=== PATIENT | male | born 1985 ===

== ENCOUNTER 2016-08-22 05:23 | Observation (INO) | payer OTHER ==
[2016-08-22 05:46] VITALS: TEMP 97.9; O2SAT 98
--- NOTE | 2016-08-22 06:18 | ED PDOC ---
HPI: Chest Pain Time Seen by Provider: 08/22/16 05:32 Chief Complaint (Nursing): Chest Pain Chief Complaint (Provider): chest pain History Per: Patient History/Exam Limitations: no limitations Onset/Duration Of Symptoms: Hrs Current Symptoms Are (Timing): Still Present Additional Complaint(s): 31yo male with PMHx including drug abuse presents to the ED with c/o intermittent chest pain since 1500 yesterday. Patient states chest pain is non- radiating and non-exertional associated with mild SOB. Admits to cocaine use over the weekend (3 lines) and alcohol use. Denies any other drugs. Past Medical History Reviewed: Historical Data, Nursing Documentation, Vital Signs Vital Signs: Last Vital Signs Temp 97.9 F 08/22/16 05:43 Pulse 85 08/22/16 05:43 Resp 16 08/22/16 05:43 BP 142/81 08/22/16 05:43 Pulse Ox 98 08/22/16 06:23 - Medical History Other PMH: drug abuse - Surgical History Surgical History: No Surg Hx - Family History Family History: States: No Known Family Hx - Social History Alcohol: Occasional Drugs: Cocaine - Home Medications Home Medications: Ambulatory Orders Medication Instructions Recorded No Known Home Med 04/26/15 - Allergies Allergies/Adverse Reactions: Allergies Allergy/AdvReac Type Severity Reaction Status Date / Time No Known Allergies Allergy Verified 08/22/16 06:34 Review of Systems ROS Statement: Except As Marked, All Systems Reviewed And Found Negative Cardiovascular: Positive for: Chest Pain Respiratory: Positive for: Shortness of Breath Physical Exam - Reviewed Nursing Documentation Reviewed: Yes Vital Signs Reviewed: Yes - Physical Exam Appears: Positive for: Well, No Acute Distress Head Exam: Positive for: ATRAUMATIC, NORMAL INSPECTION, NORMOCEPHALIC Skin: Positive for: Normal Color, Warm, Dry Eye Exam: Positive for: Normal appearance, EOMI, PERRL ENT: Positive for: Normal ENT Inspection Neck: Positive for: Normal, Painless ROM, Supple Cardiovascular/Chest: Positive for: Regular Rate, Rhythm. Negative for: Murmur , Tachycardia Respiratory: Positive for: Normal Breath Sounds. Negative for: Wheezing, Respiratory Distress Gastrointestinal/Abdominal: Positive for: Normal Exam, Bowel Sounds, Soft. Negative for: Tenderness Back: Positive for: Normal Inspection. Negative for: L CVA Tenderness, R CVA Tenderness Extremity: Positive for: Normal ROM. Negative for: Deformity, Swelling Neurologic/Psych: Positive for: Alert, Oriented - Laboratory Results Result Diagrams: 08/22/16 06:25 - ECG ECG: Positive for: Interpreted By Me, Viewed By Me ECG Rhythm: Positive for: Sinus Rhythm (NSR at 70 bpm, no ST or T wave changes ) O2 Sat by Pulse Oximetry: 98 Pulse Ox Interpretation: Normal (RA) Medical Decision Making Medical Decision Makin: Impression: cocaine induced chest pain Plan: Labs CXR Ativan 1mg PO ED obs reassess Patient s/o to Dr. Serrano at 0700 pending labs and re-eval. Scribe Attestation: Documented by Charmaine Rizvi acting as a scribe for Agapito Garcia MD. Provider Scribe Attestation: All medical record entries made by the Scribe were at my direction and personally dictated by me. I have reviewed the chart and agree that the record accurately reflects my personal performance of the history, physical exam, medical decision making, and the department course for this patient. I have also personally directed, reviewed, and agree with the discharge instructions and disposition. ED OBSERVATION Date of observation admission: 08/22/16 Time of observation admission: 05:56 - Observation admission statement Patient is being placed in observation because:: cocaine abuse, chest pain - Goals of Observation Goals of observation are:: pending ED workup Disposition - Clinical Impression Clinical Impression: Chest pain, Substance abuse - Patient ED Disposition Is Patient to be Admitted: Transfer of Care - Disposition Disposition: Transfer of Care Disposition Time: 07:00 Condition: STABLE Patient Signed Over To: Suzanne Serrano Handoff Comments: pending labs and re-eval
[2016-08-22 06:28] LABS: BASO % 0.5 % (0.0-2.0); EOS # 0.1 K/uL (0.0-0.7); EOS % 0.8 % (0.0-4.0); HEMATOCRIT 44.2 % (35.0-51.0); LYMPH # 2.4 K/uL (1.0-4.3); LYMPH % 32.3 % (20.0-40.0); MEAN CELL VOLUME 85.6 fl (80.0-94.0); MEAN CORPUSCULAR HEMOGLOBIN 28.8 pg (27.0-31.0); MEAN CORPUSCULAR HGB CONC 33.7 g/dL (33.0-37.0); MEAN PLATELET VOLUME 8.1 fl (7.2-11.7); MONO # 0.7 K/uL (0.0-0.8); MONO % 9.8 % (0.0-10.0); NEUT # 4.3 K/uL (1.8-7.0); NEUT % 56.6 % (50.0-75.0); NRBC % 0.1 % (0.0-0.0); RED CELL DISTRIBUTION WIDTH 13.4 % (11.5-14.5); WHITE BLOOD COUNT 7.6 K/uL (4.8-10.8)
[2016-08-22 06:43] LABS: BLOOD UREA NITROGEN 12 mg/dl (9-20); CALCIUM 9.5 mg/dL (8.4-10.2); CARBON DIOXIDE 26 mmol/L (22-30); CHLORIDE 103 mmol/L (98-107); GFR AFRICAN-AMERICAN > 60; GLUCOSE,RANDOM 103 mg/dL (75-110); POTASSIUM 4.2 MMOL/L (3.6-5.0); SODIUM 142 mmol/l (132-148)
[2016-08-22 06:49] LABS: PARTIAL THROMBOPLASTIN TIME 27.4 SECONDS (23.3-32.5)
--- NOTE | 2016-08-22 07:04 | ED PDOC ---
- Laboratory Results Result Diagrams: 08/22/16 06:25 08/22/16 06:25 - ECG O2 Sat by Pulse Oximetry: 98 - Progress Re-evaluation Time: 13:07 Condition: Re-examined, Improved Medical Decision Making Medical Decision Makin:00 Patient signed out to me by Dr. Garcia. Pending labs and re-eval. Disposition Doctor Will See Patient In The: Office Counseled Patient/Family Regarding: Studies Performed, Diagnosis, Need For Followup - Clinical Impression Clinical Impression: Chest pain, Substance abuse, Cocaine abuse - POA Present On Arrival: None - Disposition Disposition: Routine/Home Disposition Time: 13:08 Condition: GOOD
--- NOTE | 2016-08-22 09:48 | RAD ---
HISTORY: CP, cocaine abuse COMPARISON: 04/26/2015 TECHNIQUE: Chest PA and lateral FINDINGS: LUNGS: Poor inspiration with low lung volumes, mild crowded bronchovascular markings and mild bibasilar atelectasis PLEURA: No significant pleural effusion identified. No pneumothorax apparent. CARDIOVASCULAR: Normal. OSSEOUS STRUCTURES: No significant abnormalities. VISUALIZED UPPER ABDOMEN: Normal. OTHER FINDINGS: None. IMPRESSION: Poor inspiration with low lung volumes, mild crowded bronchovascular markings and mild bibasilar atelectasis
[2016-08-22 13:35] VITALS: BP 130/69; PULSE 68; RESP 18
== END 2016-08-22 13:07 | disposition home or self-care (01) ==
LOC: H.ER 05:23 → H.EROBSV 05:56
PROVIDERS: ADMIT Emergency Medicine; ATTEND Emergency Medicine
DX: T40.5X1A Poisoning by cocaine, accidental (unintentional), initial encounter (principal); Y92.9 Unspecified place or not applicable; F14.10 Cocaine abuse, uncomplicated; R07.9 Chest pain, unspecified